=== PATIENT | female | born 1985 | race African-American/Black ===

== ENCOUNTER → 2017-04-29 | Outpatient (CLI) | payer OTHER ==
[~2017-04-29] MED LIST: DOXYCYCLINE 10100 MG PO; EPIDUO 0.1%-2.51 GEL TP; FLEXERIL 1010 MG/TAB PO; MIGRAINE MED PO; PREDNISONE20 MG PO; TUSS PO; ULTRAM 50MG TAB50 MG PO; ZITHROMAX Z PA250 MG PO; ZOLOFT 100MG100 MG PO
== END ==
LOC: COL.RAD 13:43
DX: S49.92XA Unspecified injury of left shoulder and upper arm, initial encounter (principal); R53.1 Weakness